=== PATIENT | male | born 1975 ===

== ENCOUNTER → 2021-02-03 | Outpatient (CLI) | payer OTHER ==
[~2021-02-03] VITALS: Ht 182.9 cm; Wt 97.5 kg
[~2021-02-03] MED LIST: BUPROPION XL300 MG PO; PROTONIX40 M2 PO
--- NOTE | ~2021-02-03 | P ---
[facility] [place] [address] PROCEDURE REPORT Name: SALVADOR MANNING Room #: REG ABY Susannah#: [id number] Admission: 02/03/21 Attend Phys: Vamsi Bey Discharge: Date of : 79 Report #: [id number] THIS REPORT FOR: cc: Bobby Green MD, John R. MD McElhinney, Christian C. MD ~ DOC #: [id number] cc: MD Vamsi Rodriguez MD DATE OF SERVICE: 02/03/2021 PROCEDURE PERFORMED: Upper endoscopy with biopsies. HISTORY OF PRESENT ILLNESS: The patient is a 45-year-old male with a history of gastroesophageal reflux disease. He has been on Protonix on a daily basis, which controlled his symptoms fairly well. Denies any dysphagia. No nausea or vomiting. Plan is for upper endoscopy. DESCRIPTION OF PROCEDURE: The risks and benefits of the procedure were explained to the patient, those risks including but not limited to bleeding, perforation and the risk of sedation. He understood these risks and gave informed consent. Sedation was given using propofol per anesthesia. Next, using a standard Olympus upper endoscope, the scope was placed in the patient's mouth and advanced under direct vision through the esophagus, stomach and into the second portion of the duodenum. The larynx was normal in appearance. The esophagus was normal throughout. The GE junction was normal. There was a mild gastritis noted in the body and the antrum. Biopsies were obtained to rule out H. pylori. No evidence of ulcerations or erosions. The pylorus was normal and patent. The duodenal bulb, first and second portion were all normal. The scope was then withdrawn and the procedure terminated. The patient tolerated the procedure well. IMPRESSION: 1. Mild gastritis. 2. Otherwise, normal upper endoscopy. RECOMMENDATIONS: 1. Await biopsy results. 2. Continue daily PPI therapy. 3. Plan is for colonoscopy next today. Thank you for allowing me to participate in his care. Vamsi Khan MD [facility]/ELDA [address] [address] PROCEDURE REPORT Name: SALVADOR MANNING Room #: REG ABY Davalos#: [id number] Admission: 02/03/21 Attend Phys: Vamsi Bey Discharge: Date of : 79 Report #: [id number] By: 0824 10 Vamsi Khan MD /sanjuanita
--- NOTE | ~2021-02-03 | P ---
[facility] [address] PROCEDURE REPORT Name: SALVADOR MANNING Room #: REG ABY Susannah#: [id number] Admission: 02/03/21 Attend Phys: Vamsi Bey Discharge: Date of : 79 Report #: [id number] THIS REPORT FOR: cc: Bobby Green MD, John R. MD McElhinney, Christian C. MD ~ DOC #: [id number] cc: MD Vamsi Rodriguez MD DATE OF SERVICE: 02/03/2021 PROCEDURE PERFORMED: Colonoscopy with biopsies. HISTORY OF PRESENT ILLNESS: The patient is a 45-year-old male who reports a change in bowel habits. Stools somewhat thinner at times. He denies any blood in the stools. No abdominal pain. He does have a family history of colon cancer in his grandmother. No previous history of colonoscopy. He also has a change in frequency typically having a bowel movement every other day, previously was having bowel movements on a daily basis. DESCRIPTION OF PROCEDURE: The risks and benefits of the procedure were explained to the patient, those risks including but not limited to bleeding, perforation and the risk of sedation. He understood these risks and gave informed consent. Sedation was given using propofol per anesthesia. Next, a digital rectal exam was initially performed, which was normal. Next, using a standard Olympus colonoscope, the scope was placed in the patient's anus and advanced under direct vision to the cecum. The overall prep was excellent. The cecum and ileocecal valve were normal in appearance. Terminal ileum was intubated and normal in appearance. Ascending, transverse, descending and sigmoid colon were normal. In the distal rectum, a 3 mm sessile polyp was noted. This was removed with cold forceps. On retroflexion, no abnormalities were noted. Close examination of the anal canal was normal. The scope was then withdrawn and the procedure terminated. The patient tolerated the procedure well. IMPRESSION: 1. Small rectal polyp. 2. Otherwise, normal colonoscopy. RECOMMENDATIONS: 1. Await biopsy results. 2. Repeat colonoscopy in 5 years. 3. Consider a trial of a daily fiber. Thank you for allowing me to participate in his care. [address] [address] PROCEDURE REPORT Name: SALVADOR MANNING Room #: REG [facility] [id number] Admission: 02/03/21 Attend Phys: Vamsi Bey Discharge: Date of : 79 Report #: [id number] Vamsi Khan MD CCM/ALL By: 0855 26 Vamsi Khan MD /nt
--- NOTE | 2021-02-05 19:07 | PATH ---
[facility] [place] [address] PATHOLOGY RPT PROCEDURE Name: SALVADOR MANNING Room #: REG [facility] MJose Francisco.#: [id number] Admission: 02/03/21 Date of : 79 Discharge: Report #: [id number] Path Case #: [id number] [facility] Accession Number: [id number] . 01 Material submitted: . PART A: gastrointestinal site - GASTRITIS BX - R/O H PYLORI PART B: rectum - RECTAL POLYP . 01 Clinical history: . EGD GERD, HX OF POLYPS, CHANGE IN BOWEL BABITS HABITS GASTRITIS, COLON POLYP . 02 Diagnosis: A. Gastric mucosa, gastritis rule out H. pylori, endoscopic biopsy: - Mild reactive gastropathy. - Negative for intestinal metaplasia or atrophy. - Negative for Helicobacter pylori (properly-controlled immunohistochemical stain performed). . B. Polyp, rectal polyp, endoscopic biopsy: - Hyperplastic polyp. - Negative for dysplasia or malignancy. . (IUV:mml; 02/05/2021) QLM 02/05/2021 [facility]1 Local . 02 Electronically signed: . Mere Alicia MD, Pathologist NPI- [id number] . 01 Gross description: . A. Received in formalin labeled "Jroge, Christopher and gastritis biopsy rule out H. pylori". Received are 3 calderon-brown soft tissue fragments ranging from 0.3-0.5 cm. The specimen is entirely submitted in cassette A1. . B. Received in formalin labeled "Jorge, Christopher and rectal polyp". Received are 2 calderon-brown soft tissue fragments ranging from 0.2-0.3 cm. The specimen is entirely submitted in cassette B1.([facility]; 02/04/2021) J/[facility] 02/04/2021 1614 Local . 02 Pathologist provided ICD-10: K31.9, K62.1 . 02 CPT . [address] [address] PATHOLOGY RPT PROCEDURE Name: SALVADOR MANNING Room #: REG [facility]#: [id number] Admission: 02/03/21 Date of : 79 Discharge: Report #: [id number] Path Case #: [id number] Specimen Comment: A courtesy copy of this report has been sent to [phone], [phone] Specimen Comment: [phone] Specimen Comment: Report sent to / DR BANKS Performed at: [address], [place], [place] [id number] MD Miguel Reyes MD Phone: [phone] Performed at: [address] [id number] MD Mere Alicia MD Phone: [phone]
== END | disposition home or self-care (01) ==
LOC: GI 08:01
PROVIDERS: ATTEND Specialist
DX: R19.4 Change in bowel habit (principal); K62.1 Rectal polyp; K31.9 Disease of stomach and duodenum, unspecified; K29.70 Gastritis, unspecified, without bleeding; K21.9 Gastro-esophageal reflux disease without esophagitis; F32.9 Major depressive disorder, single episode, unspecified; G47.30 Sleep apnea, unspecified; Z98.890 Other specified postprocedural states; Z79.899 Other long term (current) drug therapy; Z80.0 Family history of malignant neoplasm of digestive organs; Z87.891 Personal history of nicotine dependence; Z90.49 Acquired absence of other specified parts of digestive tract
CPT/HCPCS: 62110; 62900